=== PATIENT | male | born 1975 | race Caucasian/White ===

== ENCOUNTER 2020-04-24 23:50 | Emergency (ER) | payer OTHER ==
[2020-04-24] MEDS ORDERED: Distilled Water Ophth Irrig Soln 120 ML Bottle EYEBOTH ONE (23:51)
[2020-04-24] MEDS ORDERED: Tetracaine HCl/PF 0.5% 4 ML Bottle EYEBOTH ONE (23:51)
[2020-04-24] MEDS ORDERED: Fluorescein 1 MG Ophth Strip EYEBOTH ONE (23:51)
--- NOTE | 2020-04-25 00:28 | EDM.PDOC ---
ED HPI GENERAL MEDICAL PROBLEM - General Chief Complaint: General Stated Complaint: metal in left eye Time Seen by Provider: 04/25/20 00:20 Source of Information: Reports: Patient History Limitations: Reports: No Limitations - History of Present Illness INITIAL COMMENTS - FREE TEXT/NARRATIVE: This patient is a 44 year male that presents to the ER. 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 Reports burning and watering. No vision loss. No pain Onset: Sudden Onset Date: 04/24/20 Onset Time: 22:00 Location: Reports: Other (left eye) Severity: Mild Improves with: Reports: None Worsens with: Reports: None Associated Symptoms: Reports: No Other Symptoms - Related Data Allergies Allergy/AdvReac Type Severity Reaction Status Date / Time No Known Allergies Allergy Verified 04/25/20 00:21 Home Meds: Home Meds Erythromycin Base [Erythromycin 0.5% Ophth Oint] 1 applic OP Q4H 3 Days #1 tube 04/25/20 [Rx] Fexofenadine/Pseudoephedrine [Palma-D 12 Hour Tablet] 1 tab PO ASDIRECTED PRN 04/25/20 [History] Ibuprofen 200 mg PO ASDIRECTED PRN 04/25/20 [History] ED ROS GENERAL - Review of Systems Review Of Systems: See Below HEENT: Reports: Other (FB sensation left eye). Denies: Vision Change Respiratory: Reports: No Symptoms Cardiovascular: Reports: No Symptoms Endocrine: Reports: No Symptoms GI/Abdominal: Reports: No Symptoms ED EXAM, GENERAL - Physical Exam Exam: See Below Exam Limited By: No Limitations General Appearance: Alert, WD/WN, No Apparent Distress Eye Exam: Left Eye: Foreign Body (small metal), Bilateral Eye: EOMI, Normal I nspection ED GENERAL MEDICAL PROCEDURES - Additional/Other Procedure(s) Other (Free Text) Procedure(s): Tetracaine to the left eye, 2gtts. no complications. Slit lamp, fluoscene used to exam. No abrasions. Small metal piece at 12 o clock removed with qtip without complications. Course - Vital Signs Last Recorded V/S: Last Vital Signs Temp 97.2 F 04/24/20 23:50 Pulse 82 04/24/20 23:50 Resp 18 04/24/20 23:50 BP 134/93 H 04/24/20 23:50 Pulse Ox 98 04/24/20 23:50 - Orders/Labs/Meds Orders: Active Orders 24 hr Category Date Time Status Erythromycin Base [Erythromycin 0.5% Ophth Oint] Med 04/25/20 00:32 Once 1 gm EYELF ONETIME ONE Medication Orders Erythromycin (Erythromycin 0.5% Ophth Oint) 1 gm EYELF ONETIME ONE Stop: 04/25/20 00:33 Meds: Medications Generic Name Dose Route Start Last Admin Trade Name Krishna PRN Reason Stop Dose Admin Erythromycin 1 gm 04/25/20 00:32 Erythromycin 0.5% Ophth Oint EYELF 04/25/20 00:33 ONETIME ONE Departure - Departure Time of Disposition: 00:20 Disposition: Home, Self-Care 01 Condition: Good Clinical Impression: Eye foreign body Qualifiers: Encounter type: initial encounter Laterality: left Qualified Code(s): T15.92XA - Foreign body on external eye, part unspecified, left eye, initial encounter - Discharge Information *PRESCRIPTION DRUG MONITORING PROGRAM REVIEWED*: Not Applicable *COPY OF PRESCRIPTION DRUG MONITORING REPORT IN PATIENT BUSHRA: Not Applicable Prescriptions: Erythromycin Base [Erythromycin 0.5% Ophth Oint] 1 applic OP Q4H 3 Days #1 tube Instructions: Eye Foreign Body, Scan-dt-Avld Forms: ED Department Discharge Additional Instructions: Followup with internal controls specialist as needed Followup with your primary care provider as needed Return to the ER for worsening of condition or any emergent concerns Erythromycin 0.5% apply to left eye 6 times a day while awake for 3 days #1 tube no refill Sepsis Event Note (ED) - Focused Exam Vital Signs: Vital Signs Temp Pulse Resp BP Pulse Ox 04/24/20 23:50 97.2 F 82 18 134/93 H 98 - My Orders Last 24 Hours: My Active Orders 04/25/20 00:32 Erythromycin Base [Erythromycin 0.5% Ophth Oint] 1 gm EYELF ONETIME ONE - Assessment/Plan Last 24 Hours: My Active Orders 04/25/20 00:32 Erythromycin Base [Erythromycin 0.5% Ophth Oint] 1 gm EYELF ONETIME ONE
[2020-04-25] MEDS ORDERED: Erythromycin Base 0.5% Ophth Oint 3.5 GM Tube EYELF ONE (00:32)
== END 2020-04-25 00:40 | disposition home or self-care (01) ==
LOC: CC.ED 23:50
DX: T15.02XA Foreign body in cornea, left eye, initial encounter (principal)
CPT/HCPCS: 65222; 99283; A9270-GY